=== PATIENT | female | born 1955 | race Two or more races ===

== ENCOUNTER 2020-10-14 08:15 | Outpatient (CLI) | payer OTHER ==
[~2020-10-14 08:15] MED LIST: KLONOPIN0.125 MG/T; LEXAPRO5 MG; NEURONTIN250 MG/5 M; NORVASC10 MG; PAXIL10 MG/5 ML; [UNRECOGNIZED DRUG - OTHER]
== END 2020-10-14 08:25 | disposition home or self-care (01) ==
LOC: NUCLEAR 08:15
PROVIDERS: ATTEND Internal Medicine Cardiovascular Disease
DX: R07.89 Other chest pain (principal); I25.6 Silent myocardial ischemia; R07.2 Precordial pain
CPT/HCPCS: 78452; 93017; A9500; J0153

== ENCOUNTER 2022-08-19 18:57 | Emergency (ER) | payer OTHER ==
[~2022-08-19] VITALS: Ht 157.5 cm; Wt 61.7 kg
[~2022-08-19 18:57] MED LIST changes: +ADULT LOW DOSE81 M1 PO; +ARICEPT10 MG PO; +ATACAND HCT 321 EAC1 PO; +BACLOFEN10 MG PO; +ESOMEPRAZOLE MA40 MG PO; +HYDROXYCHLOROQ200 MG PO; +ISOSORBIDE DINI30 MG PO; -NEURONTIN250 MG/5 M; +NEURONTIN800 MG PO; +PEPCID AC20 MG PO; +TENORMIN25 MG PO
== END 2022-08-19 21:26 | disposition home or self-care (01) ==
LOC: ER 18:57
DX: M25.50 Pain in unspecified joint (principal)

== ENCOUNTER 2022-09-28 12:26 | Emergency (ER) | payer OTHER ==
[~2022-09-28] VITALS: Ht 157.5 cm; Wt 61.7 kg
[2022-09-28] MEDS ORDERED: NABUMETONE500 MG PO (16:13)
[2022-09-28] MEDS ORDERED: ORPHENADRI30 MG/1 M1 IM (16:13)
== END 2022-09-28 16:43 | disposition home or self-care (01) ==
LOC: ER 12:26
DX: M79.602 Pain in left arm (principal); M79.662 Pain in left lower leg; M79.661 Pain in right lower leg; I10 Essential (primary) hypertension; M81.0 Age-related osteoporosis without current pathological fracture; M19.90 Unspecified osteoarthritis, unspecified site; K80.20 Calculus of gallbladder without cholecystitis without obstruction; Z88.6 Allergy status to analgesic agent; Z86.73 Personal history of transient ischemic attack (TIA), and cerebral infarction without residual deficits; M62.838 Other muscle spasm